=== PATIENT | male | born 1960 | race Caucasian/White ===

== ENCOUNTER 2018-03-17 00:47 | Inpatient (IN) | payer BC ==
[~2018-03-17] VITALS: Ht 180.3 cm; Wt 97.5 kg
[2018-03-17] MEDS ORDERED: TAMIFLU75 MG PO (00:56)
[2018-03-17] MEDS ORDERED: VIBRAMYCIN 100100 MG PO (00:56)
[2018-03-17] MEDS ORDERED: MEDROL DOSE PACK4 MG PO (00:56)
[2018-03-17] MEDS ORDERED: PHENERGAN DM SYR5 ML PO (00:57)
[2018-03-17 01:18] VITALS: BP 106/67
[2018-03-17 01:47] LABS: BASOPHILS 0.2 % (0-2); EOSINOPHILS 0.5 % (0-7); HEMATOCRIT 42.2 % (42.0-54.0); HEMOGLOBIN 14.9 g/dL (13.5-17.5); IMMATURE GRANULOCYTES 0.2 % (0-5); LYMPHOCYTES 11.8 % (15-50); MCH 31.2 pg (26.0-34.0); MCHC 35.3 g/dL (31.0-37.0); MCV 88.3 fL (80.0-100.0); MEAN PLATELET VOLUME 10.2 fL (7.4-10.4); MONOCYTES 6.5 % (2-11); NEUTROPHILS 80.8 % (40-80); PLATELET COUNT 117 10x3/uL (130-400); RBC 4.78 10x6/uL (4.20-6.10); RDW 13.5 % (11.5-14.5); WBC 5.5 10x3/uL (4.8-10.8)
[2018-03-17 02:01] LABS: APTT 30.2 SECONDS (22.8-39.4); INR 1.15 (0.85-1.17); PROTIME 14.2 SECONDS (11.6-15.0)
[2018-03-17 02:03] LABS: ALBUMIN 3.7 g/dL (3.4-5.0); ALKALINE PHOSPHATASE 52 U/L (46-116); ALT (SGPT) 40 U/L (10-68); BILIRUBIN - TOTAL 0.66 mg/dL (0.2-1.3); CALC OSMOLALITY 285 mosm/kg (275-300); CALCIUM 8.4 mg/dL (8.5-10.1); CARBON DIOXIDE 24.9 mmol/L (21.0-32.0); CHLORIDE - SERUM 108 mmol/L (98-107); CREATININE - SERUM 1.1 mg/dL (0.6-1.3); GLUCOSE 112 mg/dL (74-106); POTASSIUM - SERUM 3.7 mmol/L (3.5-5.1); PROTEIN - SERUM 6.9 g/dL (6.4-8.2); SODIUM 142 mmol/L (136-145); UREA NITROGEN 17 mg/dL (7-18); eGFR NON AFRICAN AMERICAN 73 mL/min (90-120)
[2018-03-17 02:23] LABS: CKMB 0.3 U/L (0.0-3.6); CREATINE KINASE 137 UL (21-232); TROPONIN-I < 0.017 ng/mL (0.000-0.060)
[2018-03-17 03:00] LABS: APPEARANCE CLEAR (CLEAR); BILIRUBIN NEGATIVE (NEGATIVE); COLOR YELLOW (YELLOW); GLUCOSE NEGATIVE (NEGATIVE); KETONE NEGATIVE (NEGATIVE); NITRITE NEGATIVE (NEGATIVE); PROTEIN 1+ mg/dL (NEGATIVE); UROBILINOGEN NORMAL (NORMAL)
[2018-03-17 03:02] LABS: BACTERIA NONE SEEN /hpf (NONE SEEN); EPITHELIAL CELLS 0-5 /hpf (0-5); RED CELLS - URINE NONE SEEN /hpf (0-5); WHITE CELLS - URINE 0-5 /hpf (0-5)
[2018-03-17] MEDS ORDERED: PRAVACHOL20 MG PO (05:32)
[2018-03-17 05:50] VITALS: BP 143/70; BMI 27.2
[2018-03-17 08:13] VITALS: BP 107/63
[2018-03-17 11:33] VITALS: BP 123/70
[2018-03-17 15:37] VITALS: BP 104/65
[2018-03-17 20:00] VITALS: BP 101/57
[2018-03-18] VITALS: BP 102/57
[2018-03-18 04:00] VITALS: BP 101/68
[2018-03-18 08:27] LABS: BASOPHILS 0 % (0-2); EOSINOPHILS 0 % (0-7); HEMATOCRIT 38.8 % (42.0-54.0); HEMOGLOBIN 13.5 g/dL (13.5-17.5); IMMATURE GRANULOCYTES 0.2 % (0-5); LYMPHOCYTES 5.8 % (15-50); MCH 30.8 pg (26.0-34.0); MCHC 34.8 g/dL (31.0-37.0); MCV 88.6 fL (80.0-100.0); MEAN PLATELET VOLUME 10.2 fL (7.4-10.4); MONOCYTES 3.4 % (2-11); NEUTROPHILS 90.6 % (40-80); PLATELET COUNT 121 10x3/uL (130-400); RBC 4.38 10x6/uL (4.20-6.10); RDW 13.4 % (11.5-14.5)
[2018-03-18 08:29] LABS: WBC 10.5 10x3/uL (4.8-10.8)
[2018-03-18 08:41] LABS: ALKALINE PHOSPHATASE 42 U/L (46-116); ALT (SGPT) 38 U/L (10-68); BILIRUBIN - TOTAL 0.48 mg/dL (0.2-1.3); CALC OSMOLALITY 298 mosm/kg (275-300); CALCIUM 8.4 mg/dL (8.5-10.1); CARBON DIOXIDE 24.9 mmol/L (21.0-32.0); CHLORIDE - SERUM 110 mmol/L (98-107); POTASSIUM - SERUM 3.7 mmol/L (3.5-5.1); PROTEIN - SERUM 6.2 g/dL (6.4-8.2); SODIUM 147 mmol/L (136-145); UREA NITROGEN 21 mg/dL (7-18); VANCOMYCIN - TROUGH 2.7 ug/mL (10.0-20.0); eGFR NON AFRICAN AMERICAN 81 mL/min (90-120)
[2018-03-18 08:43] LABS: GLUCOSE 167 mg/dL (74-106)
[2018-03-18 09:02] VITALS: BP 112/67
[2018-03-18 13:48] VITALS: BP 104/63; BP 109/62
[2018-03-18 13:49] VITALS: Ht 180.3 cm; Wt 97.5 kg
[2018-03-18 16:38] VITALS: BP 105/60
[2018-03-18 21:30] VITALS: BP 132/63
[2018-03-19 03:47] VITALS: BP 125/74
[2018-03-19 06:16] LABS: BASOPHILS 0.1 % (0-2); EOSINOPHILS 0 % (0-7); HEMATOCRIT 38.5 % (42.0-54.0); HEMOGLOBIN 13.3 g/dL (13.5-17.5); IMMATURE GRANULOCYTES 0.6 % (0-5); LYMPHOCYTES 4.9 % (15-50); MCH 30.4 pg (26.0-34.0); MCHC 34.5 g/dL (31.0-37.0); MCV 87.9 fL (80.0-100.0); MEAN PLATELET VOLUME 10.1 fL (7.4-10.4); MONOCYTES 5.5 % (2-11); NEUTROPHILS 88.9 % (40-80); PLATELET COUNT 135 10x3/uL (130-400); RBC 4.38 10x6/uL (4.20-6.10); RDW 13.6 % (11.5-14.5); WBC 10.8 10x3/uL (4.8-10.8)
[2018-03-19 06:29] LABS: CALC OSMOLALITY 296 mosm/kg (275-300); CALCIUM 8.5 mg/dL (8.5-10.1); CARBON DIOXIDE 23.7 mmol/L (21.0-32.0); CHLORIDE - SERUM 111 mmol/L (98-107); GLUCOSE 147 mg/dL (74-106); SODIUM 146 mmol/L (136-145); UREA NITROGEN 21 mg/dL (7-18); eGFR NON AFRICAN AMERICAN 81 mL/min (90-120)
[2018-03-19 09:40] VITALS: BP 125/71
[2018-03-19 13:51] VITALS: BP 116/68; BP 155/78
[2018-03-19 17:02] VITALS: BP 108/65
[2018-03-19 18:53] LABS: CKMB 1.1 U/L (0.0-3.6); CREATINE KINASE 263 UL (21-232); TROPONIN-I 0.017 ng/mL (0.000-0.060)
[2018-03-20] VITALS (7 sets, daily range): BP systolic 110–146; BP diastolic 66–87
[2018-03-20 01:37] LABS: CKMB 1.8 U/L (0.0-3.6); CREATINE KINASE 280 UL (21-232); TROPONIN-I < 0.017 ng/mL (0.000-0.060)
[2018-03-20 05:38] LABS: HEMATOCRIT 41.7 % (42.0-54.0); HEMOGLOBIN 14.6 g/dL (13.5-17.5); MCH 30.6 pg (26.0-34.0); MCV 87.4 fL (80.0-100.0); MEAN PLATELET VOLUME 10.8 fL (7.4-10.4); PLATELET COUNT 148 10x3/uL (130-400); RBC 4.77 10x6/uL (4.20-6.10); RDW 13.2 % (11.5-14.5); WBC 9.9 10x3/uL (4.8-10.8)
[2018-03-20 06:09] LABS: CALC OSMOLALITY 290 mosm/kg (275-300); CALCIUM 8.8 mg/dL (8.5-10.1); CARBON DIOXIDE 26.5 mmol/L (21.0-32.0); CHLORIDE - SERUM 107 mmol/L (98-107); CKMB 2.2 U/L (0.0-3.6); CREATINE KINASE 287 UL (21-232); CREATININE - SERUM 0.9 mg/dL (0.6-1.3); GLUCOSE 123 mg/dL (74-106); SODIUM 144 mmol/L (136-145); TROPONIN-I < 0.017 ng/mL (0.000-0.060); UREA NITROGEN 20 mg/dL (7-18); eGFR NON AFRICAN AMERICAN > 90 mL/min (90-120)
[2018-03-20 06:16] LABS: LYMPHOCYTES 9 % (15-50); MONOCYTES 5 % (2-11); NEUTROPHILS 80 % (40-80); PLATELET ESTIMATE DECREASED; PLATELET MORPHOLOGY NORMAL PLT MORPH
--- NOTE | 2018-03-20 08:51 | MORECARE ---
CASE MANAGEMENT DISCHARGE SUMMARY PATIENT: MARTINE RENDON UNIT: [id number] ADM DATE: 03/17/18 AGE: 57 : 56 SEX: M ROOM/BED: D.2137 AUTHOR: YAN LYLE PHYSICIAN: REFERRING PHYSICIAN: BRENDA CAMPBELL MD DATE OF SERVICE: 03/20/18 Discharge Plan Patient Name: MARTINE RENDON [facility] : 1960 Planned Disposition: Home Anticipated Discharge Date: 03/23/18 Discharge Date: Expected LOS: 6 Initial Reviewer: [email or web address] Initial Review Date: 03/20/2018 Generated: 03/20/18 9:51 am DCPIA - Discharge Planning Initial Assessment Updated by [email or web address]: Donna Denny on 03/20/18 8:50 am * Is the patient Alert and Oriented? Yes * How many steps to enter\exit or inside your home? * PCP DR. CUEVAS * Pharmacy [facility] * Preadmission Environment Home with Family * ADLs Independent * Equipment None * List name and contact numbers for known caregivers / representatives who currently or will assist patient after discharge: RANDALL RENDON () [phone] * Verbal permission to speak to the caregivers and representatives has been obtained from the patient. Yes * Community resources currently utilized None * Additional services required to return to the preadmission environment? Yes * Can the patient safely return to the preadmission environment? Yes * Has this patient been hospitalized within the prior 30 days at any hospital? No Patient Name: MARTINE RENDON Page 52022 at 0851 All edits/amendments must be made on the electronic document DICTATION DATE: 03/20/18850 FIELD SERVICES DIRECTOR: MAYRA 03/20/18850 RPT#: [id number] DC DATE: STATUS: ADM IN [facility] [address] [place] [address] END OF REPORT
--- NOTE | 2018-03-20 08:58 | MORECARE ---
CASE MANAGEMENT DISCHARGE SUMMARY PATIENT: MARTINE RENDON UNIT: [id number] ADM DATE: 03/17/18 AGE: 57 : 56 SEX: M ROOM/BED: D.2137 AUTHOR: VALDO,DOC PHYSICIAN: REFERRING PHYSICIAN: BRENDA CAMPBELL MD DATE OF SERVICE: 03/20/18 Discharge Plan Patient Name: MARTINE RENDON Facility: [facility]:[place] : 1960 Planned Disposition: Home Anticipated Discharge Date: 03/23/18 Discharge Date: Expected LOS: 6 Initial Reviewer: [email or web address] Initial Review Date: 03/20/2018 Generated: 03/20/18 9:58 am Comments DCP- Discharge Planning Updated by [email or web address]: Donna Denny on 03/20/18 7:[address] Patient Name: MARTINE RENDON Admission Status: ER Accout number: [id number] Admission Date: 03-17-2018 : 1960 Admission Diagnosis:PNEUMONIA, UNSPECIFIED ORGANISM Attending: BRENDA CAMPBELL Current LOS: 3 Anticipated DC Date: 03-23-2018 Planned Disposition: Home Primary Insurance: [employer] OUT OF STATE Discharge Planning Comments: CM MET WITH PATIENT REGARDING D/C NEEDS AND PLANS. PATIENT STATED HE LIVES WITH HIS (RANDALL) AND SHE WILL DRIVE HIM HOME AT DISCHARGE. PATIENT STATED HE HAS NO STEPS TO ENTER HIS HOME. PATIENT DID STATE HE HAS STAIRS INSIDE HIS HOME BUT DOES NOT USE THEM. PATIENT STATED HE IS INDEPENDENT WITH HIS CARE AND HAS NO DME AT HOME. PATIENTS PCP IS DR. CUEVAS AND USES [facility]. PATIENT REFUSED HOME HEALTH WHEN OFFERED. CM WILL CONTINUE TO FOLLOW PATIENT WITH D/C NEEDS AND PLANS. PCP DR. CUEVAS [facility] RANDALL RENDON () [phone] Cable Tool Driller: Donna Denny DCPIA - Discharge Planning Initial Assessment Updated by [email or web address]: Donna Denny on 03/20/18 8:50 am * Is the patient Alert and Oriented? Yes * How many steps to enter\exit or inside your home? * PCP DR. CUEVAS * Pharmacy [facility] * Preadmission Environment Home with Family * ADLs Independent * Equipment None * List name and contact numbers for known caregivers / representatives who currently or will assist patient after discharge: RANDALL RENDON () [phone] * Verbal permission to speak to the caregivers and representatives has been obtained from the patient. Yes * Community resources currently utilized None * Additional services required to return to the preadmission environment? Yes * Can the patient safely return to the preadmission environment? Yes * Has this patient been hospitalized within the prior 30 days at any hospital? No Last DP export: 03/20/18 7:51 am Patient Name: MARTINE RENDON Page 12190 at 0858 All edits/amendments must be made on the electronic document DICTATION DATE: 03/20/18857 CHIEF OF FIELD OPERATIONS: MAYRA 03/20/18857 RPT#: [id number] DC DATE: STATUS: ADM IN [facility] [address] [place] [address] END OF REPORT
[2018-03-21] VITALS (7 sets, daily range): BP systolic 74–128; BP diastolic 40–85
[2018-03-21 06:55] LABS: BASOPHILS 0.2 % (0-2); EOSINOPHILS 0 % (0-7); IMMATURE GRANULOCYTES 3.5 % (0-5); LYMPHOCYTES 11.7 % (15-50); MCH 30.7 pg (26.0-34.0); MCHC 35.7 g/dL (31.0-37.0); MCV 85.9 fL (80.0-100.0); MEAN PLATELET VOLUME 10.2 fL (7.4-10.4); MONOCYTES 8.2 % (2-11); NEUTROPHILS 76.4 % (40-80); PLATELET COUNT 146 10x3/uL (130-400); RBC 4.89 10x6/uL (4.20-6.10); WBC 8.9 10x3/uL (4.8-10.8)
[2018-03-21 07:17] LABS: CALC OSMOLALITY 285 mosm/kg (275-300); CALCIUM 8.5 mg/dL (8.5-10.1); CHLORIDE - SERUM 105 mmol/L (98-107); CREATININE - SERUM 0.9 mg/dL (0.6-1.3); GLUCOSE 121 mg/dL (74-106); POTASSIUM - SERUM 3.7 mmol/L (3.5-5.1); SODIUM 141 mmol/L (136-145); UREA NITROGEN 24 mg/dL (7-18); eGFR NON AFRICAN AMERICAN > 90 mL/min (90-120)
[2018-03-22] VITALS: BP 132/77
[2018-03-22 04:58] LABS: BASOPHILS 0.2 % (0-2); EOSINOPHILS 0 % (0-7); HEMATOCRIT 42.2 % (42.0-54.0); HEMOGLOBIN 14.8 g/dL (13.5-17.5); IMMATURE GRANULOCYTES 8.4 % (0-5); LYMPHOCYTES 8.9 % (15-50); MCH 30.1 pg (26.0-34.0); MCHC 35.1 g/dL (31.0-37.0); MCV 85.9 fL (80.0-100.0); MEAN PLATELET VOLUME 10.3 fL (7.4-10.4); MONOCYTES 6.4 % (2-11); NEUTROPHILS 76.1 % (40-80); PLATELET COUNT 151 10x3/uL (130-400); RBC 4.91 10x6/uL (4.20-6.10); RDW 12.9 % (11.5-14.5); WBC 9.8 10x3/uL (4.8-10.8)
[2018-03-22 05:11] LABS: CALC OSMOLALITY 287 mosm/kg (275-300); CALCIUM 8.2 mg/dL (8.5-10.1); CARBON DIOXIDE 23.8 mmol/L (21.0-32.0); CHLORIDE - SERUM 108 mmol/L (98-107); CREATININE - SERUM 0.9 mg/dL (0.6-1.3); GLUCOSE 130 mg/dL (74-106); MAGNESIUM - SERUM 2.4 mg/dL (1.8-2.4); POTASSIUM - SERUM 4.1 mmol/L (3.5-5.1); SODIUM 142 mmol/L (136-145); UREA NITROGEN 22 mg/dL (7-18); eGFR NON AFRICAN AMERICAN > 90 mL/min (90-120)
[2018-03-22 05:20] VITALS: BP 106/71
[2018-03-22 09:17] VITALS: BP 93/58
[2018-03-22 11:46] VITALS: BP 104/65
[2018-03-22] MEDS ORDERED: LEVAQUIN750 MG PO (15:41)
[2018-03-22] MEDS ORDERED: PREDNISONE10 MG PO (15:41)
--- NOTE | 2018-03-23 09:12 | MORECARE ---
CASE MANAGEMENT DISCHARGE SUMMARY PATIENT: MARTINE RENDON UNIT: [id number] ADM DATE: 03/17/18 AGE: 57 : 56 SEX: M ROOM/BED: D.2137 AUTHOR: VALDODOC PHYSICIAN: REFERRING PHYSICIAN: BRENDA CAMPBELL MD DATE OF SERVICE: 03/23/18 Discharge Plan Patient Name: MARTINE RENDON Facility: [facility]:[place] : 1960 Planned Disposition: Home Anticipated Discharge Date: 03/22/18 Discharge Date: 03/22/2018 Expected LOS: 5 Initial Reviewer: [email or web address] Initial Review Date: 03/20/2018 Generated: 03/23/18 10:12 am Comments DCP- Discharge Planning Updated by [email or web address]: Donna Denny on 03/20/18 7:[address] Patient Name: MARTINE RENDON Admission Status: ER Accout number: [id number] Admission Date: 03-17-2018 : 1960 Admission Diagnosis:PNEUMONIA, UNSPECIFIED ORGANISM Attending: BRENDA CAMPBELL Current LOS: 3 Anticipated DC Date: 03-23-2018 Planned Disposition: Home Primary Insurance: [employer] OUT OF STATE Discharge Planning Comments: CM MET WITH PATIENT REGARDING D/C NEEDS AND PLANS. PATIENT STATED HE LIVES WITH HIS (RANDALL) AND SHE WILL DRIVE HIM HOME AT DISCHARGE. PATIENT STATED HE HAS NO STEPS TO ENTER HIS HOME. PATIENT DID STATE HE HAS STAIRS INSIDE HIS HOME BUT DOES NOT USE THEM. PATIENT STATED HE IS INDEPENDENT WITH HIS CARE AND HAS NO DME AT HOME. PATIENTS PCP IS DR. CUEVAS AND USES [facility]. PATIENT REFUSED HOME HEALTH WHEN OFFERED. CM WILL CONTINUE TO FOLLOW PATIENT WITH D/C NEEDS AND PLANS. PCP DR. CUEVAS [facility] RANDALL RENDON () [phone] Drink Box Mechanic: Donna Denny DCPIA - Discharge Planning Initial Assessment Updated by [email or web address]: Donna Denny on 03/20/18 8:50 am * Is the patient Alert and Oriented? Yes * How many steps to enter\exit or inside your home? * PCP DR. CUEVAS * Pharmacy [facility] * Preadmission Environment Home with Family * ADLs Independent * Equipment None * List name and contact numbers for known caregivers / representatives who currently or will assist patient after discharge: RANDALL RENDON () [phone] * Verbal permission to speak to the caregivers and representatives has been obtained from the patient. Yes * Community resources currently utilized None * Additional services required to return to the preadmission environment? Yes * Can the patient safely return to the preadmission environment? Yes * Has this patient been hospitalized within the prior 30 days at any hospital? No Last DP export: 03/20/18 7:58 am Patient Name: MARTINE RENDON Page 22395 at 0912 All edits/amendments must be made on the electronic document DICTATION DATE: 03/23/18910 MILK BOTTLING MACHINE OPERATOR: MAYRA 03/23/18910 RPT#: [id number] DC DATE:03/22/18 STATUS: DIS IN [facility] [address] [place] [address] END OF REPORT
== END 2018-03-22 17:07 | disposition home or self-care (01) | DRG 193 ==
LOC: D.ER 00:47 → D.M2 04:26
PROVIDERS: Family Medicine; ADMIT Internal Medicine Nephrology
DX: J10.08 Influenza due to other identified influenza virus with other specified pneumonia (principal); J96.01 Acute respiratory failure with hypoxia; N17.9 Acute kidney failure, unspecified; J18.1 Lobar pneumonia, unspecified organism; Z72.0 Tobacco use; E86.9 Volume depletion, unspecified

== ENCOUNTER 2018-06-13 12:10 | Inpatient (IN) | payer BC ==
[~2018-06-13] VITALS: Ht 180.3 cm; Wt 95.3 kg
--- NOTE | ~2018-06-13 | HEMODYNAMI ---
PATIENT:MARTINE RENDON MEDICAL RECORD: [id number] : 56 LOCATION:.[place] D.2236 ADMISSION DATE: 06/13/18 Generatedon:06/17/201813:57 Patient name: MARTINE RENDON Patient #: [id number] SSN: : 1960 Date of study: 06/17/2018 Page: Of Hemodynamic Procedure Report Patient Data Patient Demographics Procedure consent was obtained First Name: MARTINE Gender: Male Last Name: JUSTICE : 1960 [facility] Initial: TORRIE Age: 58 year(s) Patient #: [id number] Race: Unknown Additional ID: [id number] Contact details [address]: [address] [place] [address] State: [place] City: [place] Zip code: [address] Past Medical History Allergies Allergen Reaction Date Comments Reported Penicillins 06/17/2018 Admission Admission Data Admission Date: 06/13/2018 Admission Time: 14:54 Room #: D[facility] Procedure Procedure Types Cath Procedure Peripheral Cath Diagnostic Procedure Miscellaneous Procedure Description Procedure Date Procedure Date: 06/17/2018 Procedure Start Time: 13:36 Procedure Staff Name Function Simeon Uriostegui MD Performing Physician Gab Barbour RT Monitor SUBHASH ALSTON RT Scrub Racheal Oviedo RN Nurse Eliane Adan RN Nurse Procedure Data Cath Procedure Fluoroscopy Diagnostic fluoroscopy Total fluoroscopy Time: 0.7 time: 0.7 min min Diagnostic fluoroscopy Total fluoroscopy dose: 3 dose: 3 mGy mGy Procedure Medications Medication Administration Route Dosage Lidocaine 1% added to field 20 Heparin Flush Bag added to field 2 bags (1000units/500ml NS) Fentanyl I.V. 50 mcg Versed I.V. 1 mg Fentanyl I.V. 25 mcg Versed I.V. 0.5 mg Fentanyl I.V. 25 mcg Hemodynamics Rest Heart Rate: 68 (bpm) Snapshots Pre Cath Intra NCS Post Cath Vital Signs Time Heart Resp SPO2 etCO2 NIBP (mmHg) Rhythm Pain Sedation Rate (ipm) (%) (mmHg) Status Level (bpm) 13:30:08 60 17 98 21 129/92(107) NSR 0 (11) 10(A) , No pain 13:34:16 62 17 97 20.2 125/85(103) NSR 0 (11) 10(A) , No pain 13:38:18 67 8 97 27.7 138/98(117) NSR 0 (11) 10(A) , No pain 13:42:32 17 95 18.7 99/74(85) NSR 0 (11) 8(A) , No pain 13:46:29 59 12 92 26.2 115/80(97) NSR 0 (11) 10(A) , No pain 13:50:29 60 10 94 24 127/89(112) NSR 0 (11) 10(A) , No pain 13:54:35 61 14 95 21 129/88(110) NSR 0 (11) 10(A) , No pain Medications Time Medication Route Dose Verified Delivered Reason Notes Effe ctiveness by by 13:29:48 Lidocaine 1% added 20ml Simeon Hendrix for local to vial Moody Uriostegui anesthetic field MD OCASIO 13:30:11 Heparin Flush added 2 Simeon Hendrix used for Bag to bags Moody Uriostegui procedure (1000units/500ml field MD OCASIO NS) 13:39:27 Fentanyl I.V. 50 Simeon Del [place] for [facility] Moody Adan RN sedation 13:40:57 Versed I.V. 1 mg Simeon Del [place] for Moody Adan RN sedation 13:41:10 Fentanyl I.V. 25 Simeon Del [place] for [facility] Moody Adan RN sedation 13:41:21 Versed I.V. 0.5 Simeon Del Rio for mg Moody Adan RN sedation 13:44:16 Fentanyl I.V. 25 Simeon Del [place] for [facility] Moody Adan RN sedation Procedure Log Time Note 13:19:45 Gab Barbour RT (R) (CV) sent for patient. Start room use. 13:19:56 Time tracking: Regular hours (M-F 7:00 - 5:00) 13:20:01 Plan of Care:Hemodynamics will remain stable., Cardiac rhythm will remain stable., Comfort level will be maintained., Respiratory function will remain adequate., Patient/ family verbilizes understanding of procedure., Procedure tolerated without complication., Recovers from procedure without complications.. 13:20:08 Patient received from Med/Surg to IR Alert and oriented. Tansferred to table in Supine position. 13:20:09 Correct patient and procedure confirmed by team. 13:20:11 Signed procedure consent form obtained from patient. 13:20:12 ECG and BP/O2 sat monitors applied to patient. 13:20:13 Full Disclosure recording started 13:20:14 - 13:20:19 H&P Date Dictated: 06/17/2018 Within 30 days and on chart.. 13:20:20 Pre-procedure instructions explained to patient. 13:20:21 Pre-op teaching completed and patient verbalized understanding. 13:20:23 Family unavailable. 13:20:26 Patient NPO since Breakfast. 13:20:43 Patient allergic to Penicillins 13:20:47 Is the patient allergic to Iodine/contrast media? No. 13:20:48 Is patient on blood thinner?No 13:20:50 Patient diabetic? No. 13:20:53 - 13:20:54 ----Pre-sedation anethsthesia assessment.---- 13:20:58 Previous problem with sedation/anesthesia? No ? 13:21:00 Snore? Yes 13:21:04 Sleep apnea? Yes 13:21:06 Deviated septum? No 13:21:07 Opens mouth fully? Yes 13:21:08 Sticks out tongue? Yes 13:21:24 Airway obstruction? No ? 13:21:28 Dentures? No ? 13:21:38 Patient pain scale 0/10 no. 13:21:48 IV patent on arrival in left antecubital with 0.9% NaCl at [facility]. 13:22:01 Right chest area was prepped with chlora-prep and draped in sterile fashion 13:22:02 Alarms reviewed by R. N. 13:22:03 Sharps counted by scrub and verified by R.N. 13:29:10 Vital chart was started 13:29:11 Baseline sample Acquired. 13:29:29 Use device set IR Diagnostic 13:29:42 Tegaderm 4 x 4 (1626W) opened to sterile field. 13:29:44 Sterile Angiographic Pack opened to sterile field. 13:29:45 Bag Decanter (2002S) opened to sterile field. 13:29:48 Lidocaine 1% 20ml vial added to field was administered by Simeon cristina MD; for local anesthetic; 13:30:11 Heparin Flush Bag (1000units/500ml NS) 2 bags added to field was administered by Simeon Uriostegui MD; used for procedure; 13:35:27 Physician arrived 13:35:28 --------ALL STOP TIME OUT------ 13:35:29 Final Timeout: patient, procedure, and site verified with staff and physician. All members of the team are in agreement. 13:35:41 Right chest site verified by team. 13:35:46 Fire Safety Assessment: A--An alcohol-based skin anteseptic being used preoperatively., C--Open oxygen or nitrous oxide is being used. 13:35:50 Sedation plan: IV Moderate Sedation Medication:Versed, Fentanyl 13:35:59 Procedure started. 13:36:12 Local anesthetic to Chest area with Lidocaine 1% by Simeon Uriostegui MD.INITIAL ACCESS ONLY 13:36:16 Drain bag connector([id number]) opened to sterile field. 13:36:17 STOPCOCK 3-Way Large Bore ([id number]) opened to sterile field. 13:36:19 CHEST DRAIN SYSTEM SINGLE DRY (S-1100-08LF) opened to sterile field. 13:36:20 PRADIP .035 15cm wire ([id number]) opened to sterile field. 13:36:21 Abscession 14Fr 45cm drainage catheter ([id number]) opened to sterile field. 13:39:27 Fentanyl 50 mcg I.V. was administered by Eliane Adan RN; for sedation; 13:40:57 Versed 1 mg I.V. was administered by Eliane Adan RN; for sedation; 13:41:10 Fentanyl 25 mcg I.V. was administered by Eliane Adan RN; for sedation; 13:41:21 Versed 0.5 mg I.V. was administered by Eliane Adan RN; for sedation; 13:44:16 Fentanyl 25 mcg I.V. was administered by Eliane Adan RN; for sedation; 13:44:55 2-0 Silk 685H opened to sterile field. 13:45:12 Procedure ended.(Physican Out) 13:46:15 Fluoroscopy time 00.70 minutes. 13:46:39 Fluoroscopy dose: 3 mGy 13:46:39 Flurop Dose total: 3 13:46:41 Sharps counted by scrub and verified by R.N. 13:46:46 Insertion/operative site no bleeding no hematoma. 13:46:54 Post-op/insertion site Right Chest area dressed using a 4 x 4 and Tegaderm. 13:48:26 Post procedure instruction explained to patient.Patient verbalizes understanding. 13:48:27 Procedure and supply charges have been captured, reviewed, submitted an d are correct. 13:57:05 Report given to Med/Surg. 13:57:08 Patient transfered to Med/Surg with Bed. 13:57:38 Vital chart was stopped Device Usage Item Name Manufacture Quantity Catalog Hospital Part Current Minimal Lot# / Number Charge Number Stock Stock Serial# Code Tegaderm 4 x 4 3M 1 1626W [id number] [id number] [id number] 5 (1626W) Sterile Cardinal 1 [id number] 607498 866589 5 Angiographic Pack Health Bag Decanter Microtek 1 2001S 361326 40827 266373 5 (2001S) Medical Inc. Drain bag [employer] 1 [id number] 107512 896501 [id number] 5 [id number] connector([id number]) STOPCOCK 3-Way [employer] 1 [id number] 410939 5799 570864 5 [id number] Large Bore (F14951) CHEST DRAIN Teleflex 1 S-1100-08LF 959010 496524 370889 5 SYSTEM SINGLE DRY (S-1100-08LF) PRADIP .035 15cm [employer] 1 [id number] 884750 774996 5 [id number] wire (O56732) Abscession 14Fr Angiodynamics 1 [id number] 046388 513918 032329 5 45cm drainage catheter ([id number]) 2-0 Silk 685H Ethicon 1 685H 568641 21044 177055 5 Signature Audit [place] Stage Time Signature Unsigned Intra-Procedure 06/17/2018 Gab 1:57:33 PM Km RT (R) (CV) Signatures Monitor : Gab Signature : Km RT Date : Time : [address] [address]
[~2018-06-13 12:10] MED LIST: LEVAQUIN750 MG PO; MEDROL DOSE PACK4 MG PO; PHENERGAN DM SYR5 ML PO; PRAVACHOL20 MG PO; PREDNISONE10 MG PO; TAMIFLU75 MG PO; VIBRAMYCIN 100100 MG PO
[2018-06-13] MEDS ORDERED: CO Q-10200 MG PO (12:41)
[2018-06-13 13:31] LABS: BASOPHILS 0.3 % (0-2); EOSINOPHILS 3.3 % (0-7); HEMATOCRIT 47.5 % (42.0-54.0); HEMOGLOBIN 16.9 g/dL (13.5-17.5); IMMATURE GRANULOCYTES 0.2 % (0-5); LYMPHOCYTES 28.6 % (15-50); MCH 31.6 pg (26.0-34.0); MCHC 35.6 g/dL (31.0-37.0); MCV 88.8 fL (80.0-100.0); MEAN PLATELET VOLUME 10.2 fL (7.4-10.4); MONOCYTES 9.4 % (2-11); NEUTROPHILS 58.2 % (40-80); PLATELET COUNT 181 10x3/uL (130-400); RBC 5.35 10x6/uL (4.20-6.10); RDW 13.4 % (11.5-14.5); WBC 5.8 10x3/uL (4.8-10.8)
[2018-06-13 13:42] LABS: ALKALINE PHOSPHATASE 63 U/L (46-116); ALT (SGPT) 39 U/L (10-68); BILIRUBIN - TOTAL 0.65 mg/dL (0.2-1.3); CALC OSMOLALITY 283 mosm/kg (275-300); CALCIUM 9.5 mg/dL (8.5-10.1); CARBON DIOXIDE 30.1 mmol/L (21.0-32.0); CHLORIDE - SERUM 106 mmol/L (98-107); CREATININE - SERUM 0.9 mg/dL (0.6-1.3); GLUCOSE 96 mg/dL (74-106); POTASSIUM - SERUM 4.1 mmol/L (3.5-5.1); SODIUM 142 mmol/L (136-145); UREA NITROGEN 16 mg/dL (7-18); eGFR NON AFRICAN AMERICAN > 90 mL/min (90-120)
--- NOTE | 2018-06-13 13:44 | NUR ---
ON ARRIVAL PORTABLE CHEST X-RAY DONE CONFIRMING PNEUMOTHORAX, DR. STORY AT BEDSIDE. USING STERIL TECH. ANTERIOR RIGHT SIDE 16G TUBE PLACED IN CHEST 2ND INTERCOSTAL SPACE MID CLAVICULAR, FLUTTER VALVE PLACED IN LINE, TUBE SECURED TO CHEST WITH SUTURES BY DR. STORY, PATIENT STATES HE IS BREATHING EASIER. REPEAT PORTABLE CHEST X-RY CONFIRMS RIGHT LUNG RE-EXPANDING, 02 SAT INCREASED TO 100 %.
--- NOTE | 2018-06-13 15:41 | MORECARE ---
CASE MANAGEMENT DISCHARGE SUMMARY PATIENT: MARTINE RENDON UNIT: [id number] ADM DATE: 06/13/18 AGE: 58 : 56 SEX: M ROOM/BED: D.2302 AUTHOR: YAN LYLE PHYSICIAN: REFERRING PHYSICIAN: MAGDALENA BROUSSARD MD DATE OF SERVICE: 06/13/18 Discharge Plan Patient Name: MARTINE RENDON Facility: [facility]:[place] : 1960 Planned Disposition: Home Anticipated Discharge Date: 06/15/18 Discharge Date: Expected LOS: 2 Initial Reviewer: [email or web address] Initial Review Date: 06/13/2018 Generated: 06/13/18 4:41 pm DCP- Discharge Planning Updated by [email or web address]: Fern Soto on 06/13/18 2:[address] Patient Name: MARTINE RENDON Admission Status: ER Accout number: [id number] Admission Date: 06-13-2018 : 1960 Admission Diagnosis: Attending: MAGDALENA DENNIS Current LOS: 1 Anticipated DC Date: 06-15-2018 Planned Disposition: Home Primary Insurance: [employer] OUT OF STATE Discharge Planning Comments: CM met with patient and his , Darlyn Rendon, to complete initial dc planning assessment. CM educated patient on the CM role and verbal consent given by patient to complete assessment. CM verified patient's address, phone number, and emergency contact phone numbers. Patient lives at home with his and reports he is independent in his care at home. At discharge patient plans to return home with his and feels this is a safe discharge. CM discussed availability of home health, rehab services, and medical equipment. Patient denied known discharge needs at this time. Patient reports will transport him/her home at time of discharge. CM will continue to follow and will assist as needed with dc plans/needs. Process Planner: Fern Soto RN, [facility] DCPIA - Discharge Planning Initial Assessment Updated by [email or web address]: Fern Soto on 06/13/18 3:35 pm * Is the patient Alert and Oriented? Yes * How many steps to enter\exit or inside your home? None * PCP Dr. Judd * Pharmacy [facility] * Preadmission Environment Home with Family * ADLs Independent * Equipment CPAP * List name and contact numbers for known caregivers / representatives who currently or will assist patient after discharge: Darlyn Rendon - spouse - [phone] * Verbal permission to speak to the caregivers and representatives has been obtained from the patient. Yes * Community resources currently utilized None * Additional services required to return to the preadmission environment? No * Can the patient safely return to the preadmission environment? Yes * Has this patient been hospitalized within the prior 30 days at any hospital? No Patient Name: MARTINE RENDON Page 20035 at 1541 All edits/amendments must be made on the electronic document DICTATION DATE: 06/13/18 1541 DEPARTMENT STORE GENERAL MANAGER: MAYRA 06/13/18 1541 RPT#: [id number] DC DATE: STATUS: ADM IN [facility] [address] [place] [address] END OF REPORT
[2018-06-13 16:00] VITALS: BP 128/96
--- NOTE | 2018-06-13 16:00 | NUR ---
REC'D VIA STRETCHER FROM ER NURSE, CINDY, CONNECTED TO ICU MONITORS, VSS, RIGHT UPPER CHEST WITH CT FLUTTER VALVE IN PLACE, NO RESIDUAL SEEN AT THIS TIME, FLUTTER VALVE MOVEMENT WITH BREATHING, C/O PAIN 03/27 AT ENTRY SITE, ASSESSMENT COMPLETED PER FLOWSHEET, CALL LIGHT AND TV CONTROL EXPLAINED NO NEEDS AT THIS TIME
--- NOTE | 2018-06-13 16:30 | NUR ---
DR WICK AT BEDSIDE, NEW ORDER GIVEN TO DC FLUTTER VALVE AND REPLACE WITH CT SINGLE CHAMBER CONTAINER TO 20 MMHG SUCTION, IMPLEMENTED
[2018-06-13 17:00] VITALS: BP 122/84
--- NOTE | 2018-06-13 17:00 | NUR ---
DINNER TRAY TO BEDSIDE, INDEPENDENT WITH SET UP AND EATING, AT BEDSIDE, STATUS UPDATED, NO NEEDS AT THIS TIME
[2018-06-13] MEDS ORDERED: GLUCOSAMINE HC500 MG PO (17:16)
[2018-06-13] MEDS ORDERED: METAMUCIL PACKE1 PKT PO (17:17)
[2018-06-13] MEDS ORDERED: PROBIOTIC250 MG PO (17:17)
[2018-06-13 17:42] VITALS: BP 128/95; BMI 29.3
[2018-06-13 18:00] VITALS: BP 120/77
[2018-06-13 19:00] VITALS: BP 119/87
--- NOTE | 2018-06-13 19:20 | NUR ---
REPORT RECEIVED, SHIFT ASSESSMENT COMPLETED PER FLOW SHEET. AAOX4. PPP. RT CHEST CT TO 20 CM SUCTION, NO DRAINAGE NOTED AT THIS TIME, DRESSING C/D/I. 400 MLS YELLOW UOP EMTPIED FROM URINAL. SEE FLOW SHEET FOR COMPLETE ASSESSMENT. CALL LIGHT WITHIN REACH. WILL CONTINUE TO MONITOR.
[2018-06-13 20:00] VITALS: BP 126/83
--- NOTE | 2018-06-13 22:00 | NUR ---
RECIEVED TO FLOOR, ACCOMPANIED BY HOSPITAL STAFF. AMBULATED TO BED W/O ISSUES. DENIES PAIN WHILE STILL, BUT STATES PAIN INCREASES WITH CONTINUED MOVEMENT. SPO2 96% ON 5L. VITAL SIGNS STABLE. CHEST TUBE IN PLACE TO RIGHT UPPER CHEST, CONNECTED TO SUCTION AT 20. WILL CONTINUE TO MONITOR.
[2018-06-14] VITALS: BP 136/90
[2018-06-14 06:33] LABS: BASOPHILS 0.6 % (0-2); EOSINOPHILS 5.8 % (0-7); HEMATOCRIT 45.6 % (42.0-54.0); HEMOGLOBIN 16.2 g/dL (13.5-17.5); IMMATURE GRANULOCYTES 0.4 % (0-5); LYMPHOCYTES 34.6 % (15-50); MCH 31.3 pg (26.0-34.0); MCHC 35.5 g/dL (31.0-37.0); MCV 88.2 fL (80.0-100.0); MEAN PLATELET VOLUME 10.2 fL (7.4-10.4); MONOCYTES 9.9 % (2-11); NEUTROPHILS 48.7 % (40-80); PLATELET COUNT 181 10x3/uL (130-400); RBC 5.17 10x6/uL (4.20-6.10); RDW 13.4 % (11.5-14.5); WBC 5.2 10x3/uL (4.8-10.8)
[2018-06-14 07:26] LABS: CALC OSMOLALITY 292 mosm/kg (275-300); CALCIUM 8.9 mg/dL (8.5-10.1); CHLORIDE - SERUM 109 mmol/L (98-107); CREATININE - SERUM 0.9 mg/dL (0.6-1.3); GLUCOSE 91 mg/dL (74-106); SODIUM 146 mmol/L (136-145); UREA NITROGEN 17 mg/dL (7-18); eGFR NON AFRICAN AMERICAN > 90 mL/min (90-120)
--- NOTE | 2018-06-14 07:30 | NUR ---
I have reviewed this patient and I concur with the Shift Assessment completed by the Licensed Practical Nurse today this shift.
--- NOTE | 2018-06-14 09:55 | NUR ---
PT SEEN AND ASSESSED. NO COMPLAINTS OF SOB EXCEPT IS HAVING SOME DISCOMFORT BUT DOES NOT WANT PAIN MEDS AT THIS TIME. CHEST TUBE NOTED TO RIGHT UPPER CHEST WITH DRESSING INTACT. CONNECTED TO 20 CM SUCTION. CALL LIGHT IN REACH
[2018-06-14 09:58] VITALS: BP 120/84
--- NOTE | 2018-06-14 10:35 | NUR ---
MONITOR APPLIED. SHOWS SR RATE 75. NO SCD MACHINE IN ROOM. CALLED FOR ONE. NO COMPLAINTS AT PRESETN
[2018-06-14 11:53] VITALS: BP 116/83
--- NOTE | 2018-06-14 12:01 | NUR ---
CHEST TUBE DISCONNECTED FROM SUCTION TO WATER SEAL ONLY. SCDS ON BILAT
[2018-06-14 16:57] VITALS: BP 128/89
--- NOTE | 2018-06-14 20:40 | NUR ---
REPORTS PAIN, BUT STATES HE DOESN'T WANT TO GET, "HOOKED." INFORMED PT IF HE ASKS ONLY WHEN IN PAIN, HE SHOULDN'T GET, "HOOKED," DURING HIS HOSPITAL STAY.
[2018-06-14 21:22] VITALS: BP 114/73
[2018-06-15 00:19] VITALS: BP 124/74
[2018-06-15 05:05] VITALS: BP 120/80
[2018-06-15 06:12] LABS: BASOPHILS 0.6 % (0-2); EOSINOPHILS 6.2 % (0-7); HEMATOCRIT 46.3 % (42.0-54.0); HEMOGLOBIN 16.3 g/dL (13.5-17.5); IMMATURE GRANULOCYTES 0.4 % (0-5); LYMPHOCYTES 30.8 % (15-50); MCHC 35.2 g/dL (31.0-37.0); MEAN PLATELET VOLUME 10.2 fL (7.4-10.4); PLATELET COUNT 184 10x3/uL (130-400); RBC 5.26 10x6/uL (4.20-6.10); RDW 13.2 % (11.5-14.5); WBC 5.2 10x3/uL (4.8-10.8)
[2018-06-15 06:43] LABS: ALBUMIN 3.7 g/dL (3.4-5.0); ALKALINE PHOSPHATASE 65 U/L (46-116); ALT (SGPT) 35 U/L (10-68); BILIRUBIN - TOTAL 0.89 mg/dL (0.2-1.3); CALC OSMOLALITY 286 mosm/kg (275-300); CALCIUM 8.9 mg/dL (8.5-10.1); CARBON DIOXIDE 26.3 mmol/L (21.0-32.0); CHLORIDE - SERUM 109 mmol/L (98-107); CREATININE - SERUM 0.8 mg/dL (0.6-1.3); GLUCOSE 99 mg/dL (74-106); PROTEIN - SERUM 6.5 g/dL (6.4-8.2); SODIUM 143 mmol/L (136-145); UREA NITROGEN 17 mg/dL (7-18); eGFR NON AFRICAN AMERICAN > 90 mL/min (90-120)
--- NOTE | 2018-06-15 07:28 | NUR ---
I have reviewed this patient and I concur with the Shift Assessment completed by the Licensed Practical Nurse today this shift.
[2018-06-15 10:16] VITALS: BP 109/72
--- NOTE | 2018-06-15 11:55 | NUR ---
PT SITTING UP IN BED, CHEST TUBE REMOVED BY DR WICK, NO NEED VOICED, BED IN LOW POSITION, CL IN REACH CONTINUE WITH PLAN OF CARE
[2018-06-15 12:48] VITALS: BP 106/76
--- NOTE | 2018-06-15 13:49 | NUR ---
I have reviewed this patient and I concur with the Shift Assessment completed by the Licensed Practical Nurse today this shift.
[2018-06-15 15:46] VITALS: BP 110/80
--- NOTE | 2018-06-15 16:27 | NUR ---
RECEIVED PT BACK TO ROOM FROM [facility] TEAM, PT IS AWAKE AND IN GOOD SPIRITS, EDUCATED PT ON IMPORTANCE OF BEDREST FOR FIRST FEW HOURS, RESTARTED PT DIET, NO NEEDS VOICED, NO S/S OF DISTRESS, CONTINUE WITH PLAN OF CARE
--- NOTE | 2018-06-15 17:43 | NUR ---
PT SITTING UP AT SIDE OF BED EATING SUPPER. NO S/S OF DISTRESS, BED IN LOWEST POSITION, CL IN REACH CONTINUE WITH PLAN OF CARE
[2018-06-15 22:12] VITALS: BP 112/91
[2018-06-16 00:45] VITALS: BP 122/73
[2018-06-16 05:12] VITALS: BP 123/77
[2018-06-16 05:30] LABS: BASOPHILS 0.4 % (0-2); EOSINOPHILS 6.3 % (0-7); HEMOGLOBIN 15.6 g/dL (13.5-17.5); IMMATURE GRANULOCYTES 0.2 % (0-5); LYMPHOCYTES 31.5 % (15-50); MCH 31.1 pg (26.0-34.0); MCHC 35.5 g/dL (31.0-37.0); MCV 87.8 fL (80.0-100.0); MEAN PLATELET VOLUME 10.3 fL (7.4-10.4); MONOCYTES 8.5 % (2-11); NEUTROPHILS 53.1 % (40-80); PLATELET COUNT 179 10x3/uL (130-400); RBC 5.01 10x6/uL (4.20-6.10); RDW 13.3 % (11.5-14.5); WBC 5.3 10x3/uL (4.8-10.8)
[2018-06-16 05:46] LABS: ALBUMIN 3.4 g/dL (3.4-5.0); ALKALINE PHOSPHATASE 62 U/L (46-116); ALT (SGPT) 32 U/L (10-68); BILIRUBIN - TOTAL 0.73 mg/dL (0.2-1.3); CALC OSMOLALITY 286 mosm/kg (275-300); CALCIUM 8.3 mg/dL (8.5-10.1); CARBON DIOXIDE 25.8 mmol/L (21.0-32.0); CHLORIDE - SERUM 108 mmol/L (98-107); CREATININE - SERUM 0.9 mg/dL (0.6-1.3); GLUCOSE 92 mg/dL (74-106); POTASSIUM - SERUM 3.9 mmol/L (3.5-5.1); PROTEIN - SERUM 6.3 g/dL (6.4-8.2); SODIUM 143 mmol/L (136-145); UREA NITROGEN 18 mg/dL (7-18); eGFR NON AFRICAN AMERICAN > 90 mL/min (90-120)
--- NOTE | 2018-06-16 06:29 | NUR ---
I have reviewed this patient and I concur with the Shift Assessment completed by the Licensed Practical Nurse today this shift.
--- NOTE | 2018-06-16 08:00 | NUR ---
PT IS RESTING IN BED WITH EYES OPEN. RESPIRATIONS ARE EVEN AND UNLABORED. O2 VIA NC @ 3L HUMIDIFIED. PT REPORTS SLIGHT PAIN, DENIES NEEDS AT THIS TIME. PT DENIES PRESENCE OF DYSPNEA. CHEST TUBE NOTED TO RIGHT CHEST. WATER SEAL WITHOUT COMPROMISE. DRESSING TO RIGHT CHEST TUBE IS C/D/I. BED IS IN THE LOWEST POSITION. CALL LIGHT AND BEDSIDE TABLE ARE WITHIN REACH. SIDE RAIS X 2. PT DENIES FURTHER NEEDS AT THIS TIME. WILL CONT TO MONITOR.
[2018-06-16 08:35] VITALS: BP 128/86
[2018-06-16 12:11] VITALS: BP 146/97
--- NOTE | 2018-06-16 16:00 | NUR ---
OT NOTE: PT COMPLETED FACE WASHING AND MIRYAM/DOFF GOWN WIH SET UP. PT COMPLETED BED MOB WITH SPV. PT COMPLETED ADL MOB WITH SPV/ MOD I. 01/1232 THANK YOU, PRESTON PABON
[2018-06-16 16:08] VITALS: BP 132/84
--- NOTE | 2018-06-16 19:45 | NUR ---
PT RESTING IN BED. ALERT AND ORIENTED. NO SIGNS OF DISTRESS. BREATHING EVEN AND UNLABORED. PT STATES NO PROBLEMS AT THIS TIME. IV SITE LT AC DRESSING CLEAN DRY AND INTACT. NO SIGNS OF INFECTION. 2LO2 NASAL CANNULA. CHEST TUBE RT UPPER CHEST. DRESSING CLEAN DRY AND INTACT. BOWEL SOUNDS ACTIVE. NO LOWER LEG SWELLING PRESENT. WILL CONTINUE PLAN OF CARE. CALL LIGHT IN REACH. BED LOWERED AND LOCKED.
[2018-06-16 21:34] VITALS: BP 131/92
[2018-06-17] VITALS (13 sets, daily range): BP systolic 106–151; BP diastolic 64–98
[2018-06-17 05:41] LABS: BASOPHILS 0.5 % (0-2); EOSINOPHILS 5.7 % (0-7); HEMATOCRIT 44.9 % (42.0-54.0); HEMOGLOBIN 15.9 g/dL (13.5-17.5); IMMATURE GRANULOCYTES 0.2 % (0-5); LYMPHOCYTES 31.8 % (15-50); MCH 31.2 pg (26.0-34.0); MCHC 35.4 g/dL (31.0-37.0); MEAN PLATELET VOLUME 10.5 fL (7.4-10.4); MONOCYTES 9.3 % (2-11); NEUTROPHILS 52.5 % (40-80); PLATELET COUNT 180 10x3/uL (130-400); RDW 13.2 % (11.5-14.5); WBC 5.5 10x3/uL (4.8-10.8)
--- NOTE | 2018-06-17 05:50 | NUR ---
I have reviewed this patient and I concur with the Shift Assessment completed by the Licensed Practical Nurse today this shift.
[2018-06-17 06:11] LABS: ALBUMIN 3.4 g/dL (3.4-5.0); ALKALINE PHOSPHATASE 63 U/L (46-116); ALT (SGPT) 32 U/L (10-68); BILIRUBIN - TOTAL 0.88 mg/dL (0.2-1.3); CALC OSMOLALITY 285 mosm/kg (275-300); CARBON DIOXIDE 28.1 mmol/L (21.0-32.0); CHLORIDE - SERUM 109 mmol/L (98-107); CREATININE - SERUM 0.9 mg/dL (0.6-1.3); GLUCOSE 86 mg/dL (74-106); POTASSIUM - SERUM 4.2 mmol/L (3.5-5.1); PROTEIN - SERUM 6.5 g/dL (6.4-8.2); SODIUM 143 mmol/L (136-145); UREA NITROGEN 18 mg/dL (7-18); eGFR NON AFRICAN AMERICAN > 90 mL/min (90-120)
--- NOTE | 2018-06-17 07:15 | NUR ---
PT ALERT AND ORIENTED. STANDING UP BY BED. UP AD WILLIS. NO C/O PAIN. NO S/S OF ACUTE DISTRESS NOTED. CHEST TUBE PRESENT TO RIGHT UPPER QUADRANT. DRESSING C/D/I. ON MEDIUM SUCTION. DRESSING TO UPPER RIGHT CHEST C/D/I. PT ON 2L O2, NC. IV TO LEFT AC, SL. SITE PATENT WITHOUT REDNESS OR SWELLING. REFUSED SCDS. ON ELECTROLYTE PROTOCOL. PT DENIES ANYTHING FURTHER AT THIS TIME. CALL LIGHT IN REACH. WILL CONTINUE TO MONITOR.
[2018-06-17 09:46] LABS: APTT 29.3 SECONDS (22.8-39.4); INR 1.14 (0.85-1.17); PROTIME 14.1 SECONDS (11.6-15.0)
--- NOTE | 2018-06-17 13:09 | NUR ---
PT TAKEN FOR PROCEDURE VIA BED ACCOMPANIED BY HOSPITAL STAFF.
--- NOTE | 2018-06-17 14:20 | NUR ---
RECEIVED PT FROM [employer]. CHEST TUBE REPLACEMENT, 14 FR.
--- NOTE | 2018-06-17 18:23 | NUR ---
PT RESTING IN BED, EYES OPEN. C/O PAIN, GAVE MORPHINE FOR PAIN. NO S/S OF ACUTE DISTRESS NOTED. PT DENIES ANYTHING FURTHER AT THIS TIME. CALL LIGHT IN REACH. WILL CONTINUE TO MONITOR.
--- NOTE | 2018-06-17 19:20 | NUR ---
RECEIVED REPORT, ASSUMED CARE, FAMILY AT BEDSIDE, A&O, NO S/S OF DISTRESS NOTED, CALL LIGHT IN REACH, BED LOWEST POSITION, CHEST TUBE UPRIGHT HOOKED UP TO WALL SUCTION, DENIES NEEDS, WILL CONTINUE POC
--- NOTE | 2018-06-18 01:19 | NUR ---
I have reviewed this patient and I concur with the Shift Assessment completed by the Licensed Practical Nurse today this shift.
[2018-06-18 05:45] VITALS: BP 117/78
[2018-06-18 06:00] LABS: BASOPHILS 0.3 % (0-2); EOSINOPHILS 5.5 % (0-7); HEMATOCRIT 46.4 % (42.0-54.0); HEMOGLOBIN 16.3 g/dL (13.5-17.5); IMMATURE GRANULOCYTES 0.1 % (0-5); LYMPHOCYTES 26.7 % (15-50); MCH 31.2 pg (26.0-34.0); MCHC 35.1 g/dL (31.0-37.0); MCV 88.9 fL (80.0-100.0); MEAN PLATELET VOLUME 10.6 fL (7.4-10.4); MONOCYTES 10.1 % (2-11); NEUTROPHILS 57.3 % (40-80); PLATELET COUNT 194 10x3/uL (130-400); RBC 5.22 10x6/uL (4.20-6.10); RDW 13.3 % (11.5-14.5); WBC 6.7 10x3/uL (4.8-10.8)
[2018-06-18 06:37] LABS: ALBUMIN 3.6 g/dL (3.4-5.0); ALKALINE PHOSPHATASE 64 U/L (46-116); ALT (SGPT) 32 U/L (10-68); BILIRUBIN - TOTAL 1.14 mg/dL (0.2-1.3); CALC OSMOLALITY 282 mosm/kg (275-300); CALCIUM 9.1 mg/dL (8.5-10.1); CARBON DIOXIDE 30.3 mmol/L (21.0-32.0); CHLORIDE - SERUM 106 mmol/L (98-107); GLUCOSE 87 mg/dL (74-106); POTASSIUM - SERUM 3.8 mmol/L (3.5-5.1); PROTEIN - SERUM 6.6 g/dL (6.4-8.2); SODIUM 142 mmol/L (136-145); UREA NITROGEN 16 mg/dL (7-18); eGFR NON AFRICAN AMERICAN 81 mL/min (90-120)
--- NOTE | 2018-06-18 09:00 | NUR ---
ALERT AND ORIENTED WITH CHEST TUBE INTACT TO RT ANTERIOR CHEST TO SUCTION . O2 5L N/C. IV INFILTRATED AND CHANGED TO LT. HAND. NO SOB NOTED WITH DIMINISHED TO RUQ ANTERIOR AND CLEAR OTHERWISE. DENIES ANY PAIN OR DISCOMFORT WITH BS NOTED. ENCOURAGED TO USE CALLL LIGHT FOR ASSIST.
[2018-06-18 09:10] VITALS: BP 114/75
[2018-06-18 13:35] VITALS: BP 104/78
[2018-06-18 16:48] VITALS: BP 114/72
--- NOTE | 2018-06-18 19:30 | NUR ---
RECEIVED REPORT, ASSUMED CARE, A&O, STANDING AT BEDSIDE, GIVING BATH, LINENS CHANGED, CHEST TUBE TO WALL SUCTION, NO S/S OF DISTRESS NOTED, CALL LIGHT IN REACH, BED LOWEST POSITION, DENIES NEEDS, WILL CONTINUE POC
[2018-06-18 21:01] VITALS: BP 117/79
--- NOTE | 2018-06-18 21:30 | NUR ---
WALKED BY PT ROOM STATED HE FLET LIKE HIS CHEST WAS RIPPING WHERE HIS CHEST TUBE IS PLACED, CHEST XRAY NOW, AWAITING RESULTS
--- NOTE | 2018-06-18 22:00 | NUR ---
PT STATES AFTER REPOSITIONING THE PAIN IN CHEST HAS LESSONED, STATED HE WAS GOING TO TRY AND SLEEPING, WILL CONTINUE TO MONITOR
[2018-06-19 01:20] VITALS: BP 96/57
[2018-06-19 05:21] VITALS: BP 131/80
--- NOTE | 2018-06-19 06:26 | NUR ---
NO OUTPUT ON CHEST TUBE
[2018-06-19 06:58] LABS: BASOPHILS 0.3 % (0-2); EOSINOPHILS 4.9 % (0-7); HEMATOCRIT 44.8 % (42.0-54.0); HEMOGLOBIN 15.8 g/dL (13.5-17.5); IMMATURE GRANULOCYTES 0.1 % (0-5); LYMPHOCYTES 19.8 % (15-50); MCH 31.2 pg (26.0-34.0); MCHC 35.3 g/dL (31.0-37.0); MCV 88.4 fL (80.0-100.0); MEAN PLATELET VOLUME 10.4 fL (7.4-10.4); MONOCYTES 10.9 % (2-11); PLATELET COUNT 178 10x3/uL (130-400); RBC 5.07 10x6/uL (4.20-6.10); RDW 13.2 % (11.5-14.5); WBC 7.3 10x3/uL (4.8-10.8)
[2018-06-19 07:14] LABS: ALBUMIN 3.4 g/dL (3.4-5.0); ALKALINE PHOSPHATASE 62 U/L (46-116); ALT (SGPT) 29 U/L (10-68); BILIRUBIN - TOTAL 1.38 mg/dL (0.2-1.3); CALC OSMOLALITY 281 mosm/kg (275-300); CALCIUM 9.2 mg/dL (8.5-10.1); CARBON DIOXIDE 28.3 mmol/L (21.0-32.0); CHLORIDE - SERUM 106 mmol/L (98-107); GLUCOSE 94 mg/dL (74-106); PROTEIN - SERUM 6.5 g/dL (6.4-8.2); SODIUM 141 mmol/L (136-145); UREA NITROGEN 16 mg/dL (7-18); eGFR NON AFRICAN AMERICAN 81 mL/min (90-120)
[2018-06-19 09:25] VITALS: BP 140/90
--- NOTE | 2018-06-19 10:29 | NUR ---
ALERT AND ORIENTED WITH CHEST TUBE NOTED TO RT CHEST WALL WITH DIMINISHED BS TO RT. SIDE. WITH ASYMETRICAL CHEST RISES. S/L TO RT. HAND WITH NO S/S OF INFECTION/INFILTRATION. RECEIVED CALL FROM LAB OF CULTURE RESULTS WITH DIVEMASTER TO BE NOTIFIED. UP ADLIB AND ENCOURAGED TO USE CALL LIGHT FOR ASSIST.
[2018-06-19 13:48] VITALS: BP 138/86
[2018-06-19 17:18] VITALS: BP 124/87
--- NOTE | 2018-06-19 19:15 | NUR ---
AWAKE AND ALERT CHEST TUBE SECURE WITH NO AIR LEAK NOTEDSKIN WARM AND DRY BED IS LOW AND LOCKED AND CALL LIGHT IS IN REACH STATING HE WANTS MSO4 SOON POSS
[2018-06-19 19:45] VITALS: BP 126/84
--- NOTE | 2018-06-20 01:15 | NUR ---
I have reviewed this patient and I concur with the Shift Assessment completed by the Licensed Practical Nurse today this shift.
[2018-06-20 03:45] VITALS: BP 111/75
[2018-06-20 05:51] LABS: BASOPHILS 0.8 % (0-2); EOSINOPHILS 7.1 % (0-7); HEMATOCRIT 45.4 % (42.0-54.0); HEMOGLOBIN 15.9 g/dL (13.5-17.5); LYMPHOCYTES 24.6 % (15-50); MCH 31.2 pg (26.0-34.0); MONOCYTES 11.9 % (2-11); NEUTROPHILS 55.6 % (40-80); PLATELET COUNT 179 10x3/uL (130-400); RDW 13.1 % (11.5-14.5); WBC 6.2 10x3/uL (4.8-10.8)
[2018-06-20 06:21] LABS: ALBUMIN 3.5 g/dL (3.4-5.0); ALKALINE PHOSPHATASE 64 U/L (46-116); ALT (SGPT) 28 U/L (10-68); BILIRUBIN - TOTAL 0.99 mg/dL (0.2-1.3); CALC OSMOLALITY 287 mosm/kg (275-300); CALCIUM 9.1 mg/dL (8.5-10.1); CARBON DIOXIDE 28.6 mmol/L (21.0-32.0); CHLORIDE - SERUM 106 mmol/L (98-107); CREATININE - SERUM 0.9 mg/dL (0.6-1.3); GLUCOSE 96 mg/dL (74-106); POTASSIUM - SERUM 4.1 mmol/L (3.5-5.1); PROTEIN - SERUM 6.3 g/dL (6.4-8.2); SODIUM 144 mmol/L (136-145); UREA NITROGEN 14 mg/dL (7-18); eGFR NON AFRICAN AMERICAN > 90 mL/min (90-120)
[2018-06-20 08:48] VITALS: BP 118/84
[2018-06-20 13:27] VITALS: BP 164/84
[2018-06-20 15:44] VITALS: Ht 180.3 cm; Wt 95.3 kg
[2018-06-20 18:36] VITALS: BP 124/79
--- NOTE | 2018-06-20 18:40 | NUR ---
PIV INFILTRATED. RESITED TO RIGHT HAND. 22G. TWO ATTEMPTS.
[2018-06-20 21:12] VITALS: BP 164/93
[2018-06-21 01:43] VITALS: BP 96/66
--- NOTE | 2018-06-21 03:51 | NUR ---
I have reviewed this patient and I concur with the Shift Assessment completed by the Licensed Practical Nurse today this shift.
[2018-06-21 05:31] VITALS: BP 112/73
[2018-06-21 06:25] LABS: BASOPHILS 0.8 % (0-2); EOSINOPHILS 7.3 % (0-7); HEMATOCRIT 43.4 % (42.0-54.0); HEMOGLOBIN 15.1 g/dL (13.5-17.5); IMMATURE GRANULOCYTES 0.5 % (0-5); LYMPHOCYTES 23.8 % (15-50); MCHC 34.8 g/dL (31.0-37.0); MCV 89.1 fL (80.0-100.0); MONOCYTES 9.6 % (2-11); PLATELET COUNT 184 10x3/uL (130-400); RBC 4.87 10x6/uL (4.20-6.10); RDW 12.9 % (11.5-14.5); WBC 5.9 10x3/uL (4.8-10.8)
[2018-06-21 06:51] LABS: ALBUMIN 3.3 g/dL (3.4-5.0); ALKALINE PHOSPHATASE 66 U/L (46-116); ALT (SGPT) 32 U/L (10-68); BILIRUBIN - TOTAL 0.81 mg/dL (0.2-1.3); CALC OSMOLALITY 285 mosm/kg (275-300); CARBON DIOXIDE 25.3 mmol/L (21.0-32.0); CHLORIDE - SERUM 107 mmol/L (98-107); CREATININE - SERUM 0.9 mg/dL (0.6-1.3); GLUCOSE 95 mg/dL (74-106); POTASSIUM - SERUM 4.3 mmol/L (3.5-5.1); SODIUM 143 mmol/L (136-145); UREA NITROGEN 15 mg/dL (7-18); eGFR NON AFRICAN AMERICAN > 90 mL/min (90-120)
--- NOTE | 2018-06-21 08:28 | NUR ---
PT ALERT X 4. BREATH SOUNDS CLEAR BILAT. CHEST TUBE TO R CHEST, DRESSING CDI. IV TO RIGHT HAND, SALINE LOCKED. PT REPORTING PAIN OF 3/10, WILL MONITOR. BREAKFAST IN ROOM. BED LOW, CALL LIGHT IN REACH. NO OTHER NEEDS AT THIS TIME.
[2018-06-21 08:30] VITALS: BP 108/60
[2018-06-21 14:00] VITALS: BP 121/59
[2018-06-21 18:52] VITALS: BP 107/73
[2018-06-21 21:37] VITALS: BP 116/84
--- NOTE | 2018-06-21 23:17 | NUR ---
REC'D. AT [facility]. OF SHIFT IN BED.RIGHT CHEST TUBE DRSG SITE CLEAN AND DRY.DENIES ANY DIFFICULTY BREATHING AT PRESENT TIME. WILL CONTINUE TO MONITOR FOR ANY CHGES. AND FOLLOW CURRENT PLAN OF CARE.
[2018-06-22 01:18] VITALS: BP 112/77
--- NOTE | 2018-06-22 04:34 | NUR ---
I have reviewed this patient and I concur with the Shift Assessment completed by the Licensed Practical Nurse today this shift.
[2018-06-22 06:11] VITALS: BP 111/76
[2018-06-22 06:38] LABS: BASOPHILS 0.8 % (0-2); EOSINOPHILS 7.5 % (0-7); HEMATOCRIT 43.5 % (42.0-54.0); HEMOGLOBIN 15.4 g/dL (13.5-17.5); IMMATURE GRANULOCYTES 0.2 % (0-5); LYMPHOCYTES 26.3 % (15-50); MCH 31.2 pg (26.0-34.0); MCHC 35.4 g/dL (31.0-37.0); MCV 88.1 fL (80.0-100.0); MEAN PLATELET VOLUME 10.4 fL (7.4-10.4); MONOCYTES 8.4 % (2-11); NEUTROPHILS 56.8 % (40-80); PLATELET COUNT 215 10x3/uL (130-400); RBC 4.94 10x6/uL (4.20-6.10); RDW 12.9 % (11.5-14.5); WBC 5.3 10x3/uL (4.8-10.8)
[2018-06-22 06:58] LABS: ALBUMIN 3.3 g/dL (3.4-5.0); ALKALINE PHOSPHATASE 67 U/L (46-116); ALT (SGPT) 36 U/L (10-68); BILIRUBIN - TOTAL 0.55 mg/dL (0.2-1.3); CALC OSMOLALITY 283 mosm/kg (275-300); CALCIUM 9.4 mg/dL (8.5-10.1); CARBON DIOXIDE 25.8 mmol/L (21.0-32.0); CHLORIDE - SERUM 107 mmol/L (98-107); CREATININE - SERUM 0.8 mg/dL (0.6-1.3); GLUCOSE 95 mg/dL (74-106); POTASSIUM - SERUM 3.8 mmol/L (3.5-5.1); PROTEIN - SERUM 6.5 g/dL (6.4-8.2); SODIUM 142 mmol/L (136-145); UREA NITROGEN 14 mg/dL (7-18); eGFR NON AFRICAN AMERICAN > 90 mL/min (90-120)
[2018-06-22 08:46] VITALS: BP 128/81
[2018-06-22 12:26] VITALS: BP 125/89
--- NOTE | 2018-06-22 13:01 | NUR ---
ADMINISTERED PRN PAIN MEDICATION, PT HAD CHEST TUBE PULLED, NO OTHER NEEDS VOICED, CONTINUE WITH PLAN OF CARE
[2018-06-22] MEDS ORDERED: ANORO ELLIPTA1 EACH INH (14:27)
[2018-06-22] MEDS ORDERED: ALBUTEROL SULF8.5 GM INH (14:27)
[2018-06-22] MEDS ORDERED: DOXYCYCLINE HY100 M2 PO (14:38)
--- NOTE | 2018-06-22 14:42 | NUR ---
I have reviewed this patient and I concur with the Shift Assessment completed by the Licensed Practical Nurse today this shift.
--- NOTE | 2018-06-22 16:00 | NUR ---
WENT OVER PT DC PAPERS AND ANSWERED ALL QUESTIONS DC IV WITH CATH IN TACT
--- NOTE | 2018-06-22 16:03 | MORECARE ---
CASE MANAGEMENT DISCHARGE SUMMARY PATIENT: MARTINE RENDON UNIT: [id number] ADM DATE: 06/13/18 AGE: 58 : 56 SEX: M ROOM/BED: D.2236 AUTHOR: YAN LYLE PHYSICIAN: REFERRING PHYSICIAN: MAGDALENA BROUSSARD MD DATE OF SERVICE: 06/22/18 Discharge Plan Patient Name: MARTINE RENDON Facility: [facility]:[place] : 1960 Planned Disposition: Home Anticipated Discharge Date: 06/15/18 Discharge Date: 06/22/2018 Expected LOS: 2 Initial Reviewer: [email or web address] Initial Review Date: 06/13/2018 Generated: 06/22/18 5:02 pm Comments DCP- Discharge Planning Updated by [email or web address]: Susan Mccrary on 06/22/18 2:[address] Patient Name: MARTINE RENDON Encounter No: [id number] : 1960 Primary Insurance: [employer] OUT OF STATE Anticipated DC Date: 06-15-2018 Planned Disposition: Home External Planned Provider: : DCP follow-up note: Patient and family in agreement with discharge plan. No changes to plan. Walk test completed, does not qualify for oxygen. No needs identified. Family at bedside. Case management will follow and assist as needed. Susan Mccrary DCP- Discharge Planning Updated by [email or web address]: Fern Soto on 06/13/18 2:[address] Patient Name: MARTINE RENDON Admission Status: ER Accout number: [id number] Admission Date: 06-13-2018 : 1960 Admission Diagnosis: Attending: MAGDALENA DENNIS Current LOS: 1 Anticipated DC Date: 06-15-2018 Planned Disposition: Home Primary Insurance: [employer] OUT OF STATE Discharge Planning Comments: CM met with patient and his , Darlyn Rendon, to complete initial dc planning assessment. CM educated patient on the CM role and verbal consent given by patient to complete assessment. CM verified patient's address, phone number, and emergency contact phone numbers. Patient lives at home with his and reports he is independent in his care at home. At discharge patient plans to return home with his and feels this is a safe discharge. CM discussed availability of home health, rehab services, and medical equipment. Patient denied known discharge needs at this time. Patient reports will transport him/her home at time of discharge. CM will continue to follow and will assist as needed with dc plans/needs. Regulatory Internship: Fern Soto RN, [facility] DCPIA - Discharge Planning Initial Assessment Updated by [email or web address]: Fern Soto on 06/13/18 3:35 pm * Is the patient Alert and Oriented? Yes * How many steps to enter\exit or inside your home? None * PCP Dr. Judd * Pharmacy [facility] * Preadmission Environment Home with Family * ADLs Independent * Equipment CPAP * List name and contact numbers for known caregivers / representatives who currently or will assist patient after discharge: Darlyn Rendon - [facility] - [phone] * Verbal permission to speak to the caregivers and representatives has been obtained from the patient. Yes * Community resources currently utilized None * Additional services required to return to the preadmission environment? No * Can the patient safely return to the preadmission environment? Yes * Has this patient been hospitalized within the prior 30 days at any hospital? No Last DP export: 06/13/18 2:41 p Patient Name: MARTINE RENDON Page [id number] at 1603 All edits/amendments must be made on the electronic document DICTATION DATE: 06/22/181601 HELICOPTER SPECIALIST: MAYRA 06/22/181601 RPT#: [id number] DC DATE:06/22/18 STATUS: DIS IN [place] [id number] [place] [address] END OF REPORT
--- NOTE | 2018-06-24 14:05 | MORECARE ---
CASE MANAGEMENT DISCHARGE SUMMARY PATIENT: MARTINE RENDON UNIT: [id number] ADM DATE: 06/13/18 AGE: 58 : 56 SEX: M ROOM/BED: D.2236 AUTHOR: YAN LYLE PHYSICIAN: REFERRING PHYSICIAN: MAGDALENA BROUSSARD MD DATE OF SERVICE: 06/24/18 Discharge Plan Patient Name: MARTINE RENDON Facility: [facility]:[place] : 1960 Planned Disposition: Home Anticipated Discharge Date: 06/15/18 Discharge Date: 06/22/2018 Expected LOS: 2 Initial Reviewer: [email or web address] Initial Review Date: 06/13/2018 Generated: 06/24/18 3:05 pm Comments DCP- Discharge Planning Updated by [email or web address]: Susan Mccrary on 06/22/18 2:[address] Patient Name: MARTINE RENDON Encounter No: [id number] : 1960 Primary Insurance: [employer] OUT OF STATE Anticipated DC Date: 06-15-2018 Planned Disposition: Home External Planned Provider: : DCP follow-up note: Patient and family in agreement with discharge plan. No changes to plan. Walk test completed, does not qualify for oxygen. No needs identified. Family at bedside. Case management will follow and assist as needed. Susan Mccrary DCP- Discharge Planning Updated by [email or web address]: Fern Soto on 06/13/18 2:[address] Patient Name: MARTINE RENDON Admission Status: ER Accout number: [id number] Admission Date: 06-13-2018 : 1960 Admission Diagnosis: Attending: MAGDALENA DENNIS Current LOS: 1 Anticipated DC Date: 06-15-2018 Planned Disposition: Home Primary Insurance: [employer] OUT OF STATE Discharge Planning Comments: CM met with patient and his , Darlyn Rendon, to complete initial dc planning assessment. CM educated patient on the CM role and verbal consent given by patient to complete assessment. CM verified patient's address, phone number, and emergency contact phone numbers. Patient lives at home with his and reports he is independent in his care at home. At discharge patient plans to return home with his and feels this is a safe discharge. CM discussed availability of home health, rehab services, and medical equipment. Patient denied known discharge needs at this time. Patient reports will transport him/her home at time of discharge. CM will continue to follow and will assist as needed with dc plans/needs. Ob Nurse: Fern Soto RN, [facility] DCPIA - Discharge Planning Initial Assessment Updated by [email or web address]: Fern Soto on 06/13/18 3:35 pm * Is the patient Alert and Oriented? Yes * How many steps to enter\exit or inside your home? None * PCP Dr. Judd * Pharmacy [facility] * Preadmission Environment Home with Family * ADLs Independent * Equipment CPAP * List name and contact numbers for known caregivers / representatives who currently or will assist patient after discharge: Darlyn Rendon - [facility] - [phone] * Verbal permission to speak to the caregivers and representatives has been obtained from the patient. Yes * Community resources currently utilized None * Additional services required to return to the preadmission environment? No * Can the patient safely return to the preadmission environment? Yes * Has this patient been hospitalized within the prior 30 days at any hospital? No Last DP export: 06/22/18 3:03 pm Patient Name: MARTINE RENDON Page [id number] at 1405 All edits/amendments must be made on the electronic document DICTATION DATE: 06/24/181403 VP CARDIOVASCULAR: MAYRA 06/24/181403 RPT#: [id number] DC DATE:06/22/18 STATUS: DIS IN [facility] [address] [place] [address] END OF REPORT
== END 2018-06-22 16:01 | disposition home or self-care (01) | DRG 199 ==
LOC: D.ER 12:10 → D.ICU 14:54 → D.MS 14:54
PROVIDERS: Family Medicine; Radiology Diagnostic Radiology; ADMIT Family Medicine Adult Medicine; ATTEND Family Medicine Adult Medicine
PROC: 0W9930Z Drainage of Right Pleural Cavity with Drainage Device, Percutaneous Approach (ICD-10-PCS; principal; 2018-06-13)
PROC: 0W9930Z Drainage of Right Pleural Cavity with Drainage Device, Percutaneous Approach (ICD-10-PCS; 2018-06-15)
PROC: 0W9930Z Drainage of Right Pleural Cavity with Drainage Device, Percutaneous Approach (ICD-10-PCS; 2018-06-17)
DX: J93.83 Other pneumothorax (principal); J96.01 Acute respiratory failure with hypoxia; J98.11 Atelectasis; J43.2 Centrilobular emphysema; J44.9 Chronic obstructive pulmonary disease, unspecified